=== PATIENT | female | born 1950 | race Caucasian/White ===

== ENCOUNTER 2019-09-15 20:09 | Emergency (ER) | payer MEDICARE, OTHER ==
--- NOTE | 2019-09-15 21:59 | ER Document Report ---
ED Medical Screen (RME) - General Stated Complaint: FALL/LEFT KNEE PAIN Time Seen by Provider: 09/15/19 21:51 Notes: 69-year-old female on presents the emergency department for a fall on Saturday with left lower extremity swelling. Patient tripped in a parking lot, fell to her knees. Denies dizziness or lightheadedness but states she feels "off". No shortness of breath or chest pain, no other complaints. Exam: Left lower extremity with ecchymosis over the knee and anterior leg, entire leg is edematous I have greeted and performed a rapid initial assessment of this patient. A comprehensive ED assessment and evaluation of the patient, analysis of test results and completion of medical decision making process will be conducted by an additional ED providers. Physical Exam - Vital signs Vitals: Temp Pulse Resp BP Pulse Ox 98.1 F 78 18 164/57 H 100 09/15/19 20:26 09/15/19 20:26 09/15/19 20:26 09/15/19 20:26 09/15/19 20:26 Course - Vital Signs Vital signs: Temp Pulse Resp BP Pulse Ox 98.1 F 78 18 164/57 H 100 09/15/19 20:26 09/15/19 20:26 09/15/19 20:26 09/15/19 20:26 09/15/19 20:26
[2019-09-15 22:55] LABS: ABSOLUTE EOSINOPHILS # (AUTO) 0.2 10^3/uL (0.0-0.6); ABSOLUTE LYMPHOCYTES (AUTO) 2.1 10^3/uL (0.5-4.7); ABSOLUTE MONOCYTES (AUTO) 0.5 10^3/uL (0.1-1.4); ABSOLUTE NEUT (AUTO) 5.9 10^3/uL (1.7-8.2); BASOPHILS % (AUTO) 0.3 % (0-2); EOSINOPHILS % (AUTO) 2.4 % (0-6); HEMATOCRIT 36.9 % (36.0-47.0); HEMOGLOBIN 12.5 g/dL (12.0-15.5); LYMPHOCYTES % (AUTO) 23.8 % (13-45); MEAN CORPUSCULAR HEMOGLOBIN 27.7 pg (27.0-33.4); MEAN CORPUSCULAR HGB CONC 33.8 g/dL (32.0-36.0); MEAN CORPUSCULAR VOLUME 82 fl (80-97); PLATELET COUNT 256 10^3/uL (150-450); RED CELL DISTRIBUTION WIDTH 13.3 % (11.5-14.0); SEGMENTED NEUTROPHILS % (AUTO) 67.5 % (42-78); TOTAL CELLS COUNTED % (AUTO) 100 %; WHITE BLOOD COUNT 8.8 10^3/uL (4.0-10.5)
--- NOTE | 2019-09-15 23:06 | RADIOLOGY REPORT (SQ) ---
CT LOWER EXTREMITY WITHOUT IV CONTRAST EXAM DATE: 09/15/2019 9:59 PM PARTS ADMINISTRATOR HISTORY: Fall, edema on Eliquis, concern fluid collection COMPARISON: None. TECHNIQUE: CT scan of the left lower extremity without IV contrast. This exam was performed according to our departmental dose-optimization program, which includes automated exposure control, adjustment of the mA and/or kV according to patient size and/or use of iterative reconstruction technique. FINDINGS: There is diffuse subcutaneous edema throughout the left lower extremity. Additionally, there is a focal hyperdense fluid collection within the prepatellar soft tissues which measures approximately 7 cm in maximum dimension. No acute fracture or dislocation is seen. No knee joint effusion. Mild tricompartmental degenerative changes. Nonspecific calcification scattered throughout the subcutaneous tissues. Mildly prominent superficial vessels. IMPRESSION: 1. Approximately 7 cm hematoma overlying the prepatellar soft tissues. 2. No acute fracture.
[2019-09-16] MEDS ORDERED: HYDROCODONE/ACETAMINOPHEN 5-325 MG (6 TAB/ER DISP) PO PRN (01:08)
--- NOTE | 2019-09-16 01:40 | ER Document Report ---
ED General - General Chief Complaint: Knee Pain Stated Complaint: FALL/LEFT KNEE PAIN Time Seen by Provider: 09/15/19 21:51 TRAVEL OUTSIDE OF THE [place] IN LAST 30 DAYS: No - HPI Notes: Patient is a 69-year-old female with a history of phlebitis, currently anticoagulated on Xarelto, who presents emergency department for evaluation of swelling and pain in her left knee. She fell on Saturday. She states she tripped over a parking curb, fell down, landed on all fours, but the left knee took the brunt of the force. She states that since then she said increased swelling and pain. She was concerned she might have a fracture. She did not lose consciousness, had no neck or back pain. She states she believes she hit her head, but denies any headaches, visual changes, or any other acute complaints or concerns. She states she is had some swelling in that area since being diagnosed with phlebitis, but it has worsened since this injury. - Related Data Allergies/Adverse Reactions: No Known Allergies Allergy (Unverified 09/16/19 01:41) Home Medications: xaralto, metoprolol, baby asa Past Medical History - General Information source: Patient - Social History Smoking Status: Never Smoker Chew tobacco use (# tins/day): No Frequency of alcohol use: Rare Drug Abuse: None Family History: Reviewed & Not Pertinent Patient has suicidal ideation: No Patient has homicidal ideation: No - Past Medical History Cardiac Medical History: Reports: Hx Coronary Artery Disease, Hx Hypercholesterolemia, Hx Hypertension Endocrine Medical History: Reports: Hx Diabetes Mellitus Type 2 - Currently diet controlled Review of Systems - Review of Systems Constitutional: No symptoms reported EENT: No symptoms reported Cardiovascular: No symptoms reported Respiratory: No symptoms reported Gastrointestinal: No symptoms reported Genitourinary: No symptoms reported Musculoskeletal: See HPI Skin: No symptoms reported Neurological/Psychological: No symptoms reported Physical Exam - Vital signs Vitals: Temp Pulse Resp BP Pulse Ox 98.1 F 80 18 164/57 H 100 09/15/19 20:23 09/15/19 20:23 09/15/19 20:23 09/15/19 20:23 09/15/19 20:23 - Notes Notes: Is a very pleasant 69-year-old female who appears her stated age in no acute dis tress. Vital signs reviewed, please refer to chart. Head is normocephalic, atraumatic. Pupils equal round, reactive to light. Neck is supple without meningismus. Heart is regular rate and rhythm. Lungs are clear to auscultation bilaterally. Abdomen is soft, nontender, normoactive bowel sounds throughout. Extremities without cyanosis, clubbing. Examination of the left lower extremity yields a moderate amount of swelling. She has 1+ pitting edema. She has ecchymosis over the anterior knee, that tracks down into the anterior ayala and the pretibial regions. No posterior calf tenderness. Neurovascularly intact distally. Course - Re-evaluation Re-evalutation: 09/16/19 01:47 Patient presents emergency department for evaluation. She expressed my colleague that she just did not "feel right" so CBC was added in addition to her CT scan. CBC was unremarkable. CT scan revealed a hematoma outside of the knee, but no joint pathology at this time. Patient is on Xarelto so entire premature is not appropriate. She is having significant amount of pain with movement. I did send her home with pain medication. She is given compression stockings. I discussed with her the symptoms of compartment syndrome, and expressed to her the importance of keeping her leg elevated. We talked about the symptoms that should prompt immediate return and she voiced understanding. She is to return to the ED with worsening or new concerning symptoms of any sort. - Vital Signs Vital signs: Temp Pulse Resp BP Pulse Ox 0 F L 0 L 0 L 0/0 L 0 L 09/16/19 01:59 09/16/19 01:59 09/16/19 01:59 09/16/19 01:59 09/16/19 01:59 - Laboratory Result Diagrams: 09/15/19 21:59 Discharge - Discharge Clinical Impression: Traumatic hematoma of left knee Condition: Stable Disposition: HOME, SELF-CARE Instructions: Compartment Syndrome Cautions ([facility]), Ice & Elevation ([facility]) Additional Instructions: You have a hematoma outside of your knee, but no hematoma inside of your knee. There is no apparent fracture on CT scan. Please keep your leg elevated as much as possible. Wear the compression stockings to minimize swelling. If you develop increased swelling, numbness, coldness of the extremity, markedly increased pain, or any other new or concerning symptoms, please return immediately to the emergency department for reevaluation. Otherwise, follow-up with primary care next week. Take [place] as needed for severe pain. Please watch for dizziness, drowsiness, and constipation with this medication.
[2019-09-16 02:02] VITALS: BP 0/0
== END 2019-09-16 02:01 | disposition home or self-care (01) ==
LOC: ER 20:09
DX: S80.02XA Contusion of left knee, initial encounter (principal); M25.562 Pain in left knee; W10.1XXA Fall (on)(from) sidewalk curb, initial encounter; Y92.481 Parking lot as the place of occurrence of the external cause; I25.10 Atherosclerotic heart disease of native coronary artery without angina pectoris; E78.00 Pure hypercholesterolemia, unspecified; I10 Essential (primary) hypertension; E11.9 Type 2 diabetes mellitus without complications; Z79.02 Long term (current) use of antithrombotics/antiplatelets
CPT/HCPCS: 99284; 36415; 85025; 73700; A9270